=== PATIENT | male | born 1955 | race Caucasian/White ===

== ENCOUNTER 2017-11-01 17:13 | Inpatient (IN) | payer MEDICAID ==
[~2017-11-01] VITALS: Ht 177.8 cm; Wt 61.7 kg
--- NOTE | ~2017-11-01 | EC ---
PATIENT:GIANNI CURTIS DATE OF SERVICE: 11/01/17 SEX: M MEDICAL RECORD: [id number] DATE OF : 53 LOCATION:D.M2 D.213 AGE OF PATIENT: 62 ADMISSION DATE: 11/01/17 REFERRING PHYSICIAN: INTERPRETING PHYSICIAN: NICHOLAS MEDINA MD ECHOCARDIOGRAM REPORT ECHO CHARGES 4 ECHO COMPLETE CLINICAL DIAGNOSIS: CHF ECHOCARDIOGRAPHIC MEASUREMENTS (adult normal given) AC root (d.<3.7cm) 3.5 cm LV Septum d (<1.2 cm> 1.4 cm Valve Excursion 1.7 cm LV Septum (systole) 1.8 cm Left Atria (s.<4.0cm> 2.8 cm LVPW d(<1.2cm) 1.7 cm RV (d.<2.3cm) 3.4 cm LVPW (sytole) 1.9 cm LV diastole(<5.6CM) 4.5 cm MV E-F(>70mm/sec) cm LV systole 3.2 cm LVOT Diameter 1.9 cm MV exc.(>10mm) 1.8 cm Est.ejection fraction (50-75%) % Pericardial Effusion N DOPPLER: LVIT cm/sec A 112 cm/sec E 93.0 cm/sec LA cm/sec RVSP 23 mmHg LVOT 122 cm/sec AOP1/2T m/s Asc. Ao 166 cm/sec RVOT 95 cm/sec RA cm/sec PA 147 cm/sec AV Gradient Peak 11.07mmHg AV Mean 5.30 mmHg AV Area 1.9 cm MV Gradient Peak 6.36 mmHg MV Mean 3.49 mmHg MV Area cm COMMENTS: Etcher Enameling: Corby BARRERA Flavor Room Worker: 2 Dr[address] Power TAPE# PACS DATE OF SERVICE: 11/02/2017 PROCEDURE: Echocardiogram FINDINGS: 1. Left ventricular chamber size is within normal limits. Left ventricular systolic function is normal. Overall ejection fraction estimated at 55%. 2. Left atrium, right atrium, and right ventricle chamber sizes are within normal limits. 3. Valvular structures have normal structure and motion. ECHOCARDIOGRAM REPORT [id number] GIANNI CURTIS 4. Doppler interrogation reveals mild mitral regurgitation, mild tricuspid regurgitation, no other valvular insufficiency or stenosis and pulmonary systolic pressure is normal estimated at 23 mmHg. 5. No evidence of pericardial effusion or left ventricular thrombus. TRANSINT:[id number] Voice Confirmation ID: [id number] DOCUMENT ID: [id number] NICHOLAS MEDINA MD at 1148 CC: [id number] DICTATION DATE: 11/03/17 1047 [employer] PL[employer] SUPERINTENDENT: 11/03/17 1058 ADM IN [facility] [address] [place] [address]
--- NOTE | ~2017-11-01 | OP ---
PATIENT NAME: GIANNI CURTIS MEDICAL RECORD: [id number] :53 LOCATION:D. D.2131 ADMISSION DATE:11/01/17 SURGEON: KODY NEGRETE MD DATE OF OPERATION: 11/06/2017 SURGEON: Kody Negrete MD PREOPERATIVE DIAGNOSES: Pneumonia, pleural effusion, CHF, lymphoma. POSTOPERATIVE DIAGNOSES: Pneumonia, pleural effusion, CHF, lymphoma. PROCEDURE PERFORMED: Left inguinal excisional lymph node biopsy. ANESTHESIA: General. COMPLICATIONS: None. SPECIMENS: Left inguinal lymph node, 4 x 3 x 3 cm. Case was clean. OPERATIVE COURSE: After consent was obtained, the patient was taken to the operating room and placed in the supine position on the operating table. Next, general anesthesia was given via endotracheal intubation after a timeout was performed to confirm the correct patient and procedure. Left inguinal area was prepped and draped in typical sterile fashion. A 15 cc of local anesthetic were injected. After local anesthetic, a small transverse incision was made. Dissection continued through subcutaneous tissue with electrocautery. Once the node was identified, it was circumferentially dissected with a right angle dissector. Clips were placed. Multiple clips were used during the dissection. All tissue surrounding the lymph node was clipped prior to tissue dissection. The lymph node was dissected out after meticulous circumferential dissection with clip application. The specimen was removed and sent with lymph node protocol to pathology. The wound was copiously irrigated and suctioned. A small 10-Faroese drain was placed into the wound and the wound was closed in multiple layers, deep subcutaneous tissue with 3-0 Vicryl sutures, superficial wound closure with 3-0 Vicryl suture, and skin was closed with 4-0 Monocryl. The LUCILLE drain was secured to the skin using 2-0 nylon suture. The incision was reinforced with Mastisol and Steri-Strips. At the end of the case, all needle and instrument counts were correct. No complications occurred. The patient was extubated and transferred to the PACU in stable condition. TRANSINT:[id number] Voice Confirmation ID: [id number] DOCUMENT ID: [id number] KODY NEGRETE MD at 173 CC: [id number] DICTATION DATE: 11/06/17 1332 BONDING MOLDER: 11/06/17 1408 ADM IN [address] [place] [address]
[2017-11-01 17:27] VITALS: BP 128/66; BMI 21.5
[2017-11-01] MEDS ORDERED: WELLBUTRIN SR150 MG PO (17:37)
[2017-11-01] MEDS ORDERED: MOBIC7.5 MG PO (17:38)
[2017-11-01] MEDS ORDERED: KLONOPIN1 MG PO (17:38)
[2017-11-01] MEDS ORDERED: OXYBUTYNIN CHLOR5 MG PO (17:39)
[2017-11-01] MEDS ORDERED: PROTONIX20 MG PO (17:39)
[2017-11-01] MEDS ORDERED: SEROQUEL100 MG PO (17:40)
[2017-11-01 19:00] VITALS: BP 104/62
[2017-11-01 19:06] LABS: HEMATOCRIT 30.8 % (42.0-54.0); HEMOGLOBIN 10.1 g/dL (13.5-17.5); MCH 27.4 pg (26.0-34.0); MCHC 32.8 g/dL (31.0-37.0); MCV 83.7 fL (80.0-100.0); MEAN PLATELET VOLUME 9.5 fL (7.4-10.4); PLATELET COUNT 252 10x3/uL (130-400); RBC 3.68 10x6/uL (4.20-6.10); RDW 17.5 % (11.5-14.5); WBC 11.6 10x3/uL (4.8-10.8)
[2017-11-01 19:16] LABS: ALBUMIN 1.7 g/dL (3.4-5.0); ALKALINE PHOSPHATASE 75 U/L (46-116); ALT (SGPT) 18 U/L (10-68); BILIRUBIN - TOTAL 0.78 mg/dL (0.2-1.3); CALC OSMOLALITY 254 mosm/kg (275-300); CALCIUM 7.2 mg/dL (8.5-10.1); CARBON DIOXIDE 24.5 mmol/L (21.0-32.0); CHLORIDE - SERUM 96 mmol/L (98-107); CREATININE - SERUM 0.7 mg/dL (0.6-1.3); GLUCOSE 85 mg/dL (74-106); POTASSIUM - SERUM 3.9 mmol/L (3.5-5.1); PROTEIN - SERUM 6.7 g/dL (6.4-8.2); SODIUM 127 mmol/L (136-145); UREA NITROGEN 16 mg/dL (7-18); eGFR NON AFRICAN AMERICAN > 90 mL/min (90-120)
[2017-11-01 19:40] LABS: LYMPHOCYTES 4 % (15-50); MONOCYTES 2 % (2-11); NEUTROPHILS 94 % (40-80); PLATELET ESTIMATE NORMAL
[2017-11-02 04:52] VITALS: BP 105/51
[2017-11-02 08:19] VITALS: BP 119/55
[2017-11-02 11:20] LABS: BASOPHILS 1.3 % (0-2); EOSINOPHILS 0.2 % (0-7); HEMATOCRIT 28.5 % (42.0-54.0); HEMOGLOBIN 9.3 g/dL (13.5-17.5); IMMATURE GRANULOCYTES 0.9 % (0-5); LYMPHOCYTES 7.1 % (15-50); MCH 27.3 pg (26.0-34.0); MCHC 32.6 g/dL (31.0-37.0); MCV 83.6 fL (80.0-100.0); MEAN PLATELET VOLUME 9.3 fL (7.4-10.4); MONOCYTES 3.7 % (2-11); NEUTROPHILS 86.8 % (40-80); PLATELET COUNT 211 10x3/uL (130-400); RBC 3.41 10x6/uL (4.20-6.10); RDW 17.5 % (11.5-14.5); WBC 10.3 10x3/uL (4.8-10.8)
[2017-11-02 11:32] VITALS: BP 132/58
[2017-11-02 11:35] LABS: ALBUMIN 1.6 g/dL (3.4-5.0); ALKALINE PHOSPHATASE 71 U/L (46-116); ALT (SGPT) 22 U/L (10-68); CALC OSMOLALITY 254 mosm/kg (275-300); CALCIUM 7.4 mg/dL (8.5-10.1); CHLORIDE - SERUM 95 mmol/L (98-107); CREATININE - SERUM 0.7 mg/dL (0.6-1.3); GLUCOSE 114 mg/dL (74-106); POTASSIUM - SERUM 3.8 mmol/L (3.5-5.1); PROTEIN - SERUM 6.4 g/dL (6.4-8.2); SODIUM 126 mmol/L (136-145); UREA NITROGEN 16 mg/dL (7-18); eGFR NON AFRICAN AMERICAN > 90 mL/min (90-120)
[2017-11-02 11:43] LABS: MAGNESIUM - SERUM 2.1 mg/dL (1.8-2.4); PRO BNP 333 pg/mL (0-125)
[2017-11-02 11:44] LABS: INR 1.62 (0.85-1.17); PROTIME 18.7 SECONDS (11.6-15.0)
[2017-11-02 13:03] VITALS: BMI 21.5
[2017-11-02 15:44] VITALS: BP 138/65
[2017-11-02 16:01] LABS: PROTEIN - BODY FLUID 3.8 G/DL
[2017-11-02 18:20] LABS: NEUT - BF 91 %
[2017-11-02 18:43] LABS: % SATURATION 6 % (15-55); IRON 10 ug/dl (35-150); TOTAL IRON BIND CAPACITY 146 ug/dl (260-445); UNSAT IRON BIND CAPACITY 136 ug/dl (150-375)
[2017-11-02 20:53] VITALS: BP 114/68
[2017-11-03 02:35] VITALS: BP 123/75
[2017-11-03 05:41] LABS: BASOPHILS 0.7 % (0-2); EOSINOPHILS 0 % (0-7); HEMATOCRIT 27.5 % (42.0-54.0); HEMOGLOBIN 8.9 g/dL (13.5-17.5); IMMATURE GRANULOCYTES 0.6 % (0-5); LYMPHOCYTES 5.7 % (15-50); MCH 27.2 pg (26.0-34.0); MCHC 32.4 g/dL (31.0-37.0); MCV 84.1 fL (80.0-100.0); MEAN PLATELET VOLUME 9.6 fL (7.4-10.4); MONOCYTES 3.3 % (2-11); NEUTROPHILS 89.7 % (40-80); PLATELET COUNT 214 10x3/uL (130-400); RBC 3.27 10x6/uL (4.20-6.10); RDW 17.3 % (11.5-14.5); WBC 11.1 10x3/uL (4.8-10.8)
[2017-11-03 06:08] VITALS: BP 114/55
[2017-11-03 06:12] LABS: % SATURATION 7 % (15-55); IRON 10 ug/dl (35-150); TOTAL IRON BIND CAPACITY 141 ug/dl (260-445); UNSAT IRON BIND CAPACITY 131 ug/dl (150-375)
[2017-11-03 06:13] LABS: ALBUMIN 1.6 g/dL (3.4-5.0); ALKALINE PHOSPHATASE 67 U/L (46-116); BILIRUBIN - TOTAL 0.76 mg/dL (0.2-1.3); CALCIUM 7.4 mg/dL (8.5-10.1); CARBON DIOXIDE 21.6 mmol/L (21.0-32.0); CHLORIDE - SERUM 95 mmol/L (98-107); FERRITIN 359 ng/mL (3-244); GLUCOSE 115 mg/dL (74-106); MAGNESIUM - SERUM 1.9 mg/dL (1.8-2.4); PRE-ALBUMIN 10.5 mg/dL (18.0-35.7); PROTEIN - SERUM 6.7 g/dL (6.4-8.2); SODIUM 126 mmol/L (136-145)
[2017-11-03 06:14] LABS: ALT (SGPT) 33 U/L (10-68); CALC OSMOLALITY 258 mosm/kg (275-300); POTASSIUM - SERUM 4.5 mmol/L (3.5-5.1); UREA NITROGEN 27 mg/dL (7-18); eGFR NON AFRICAN AMERICAN 80 mL/min (90-120)
[2017-11-03 07:51] VITALS: BP 123/63
[2017-11-03 13:16] LABS: FUNGUS STAIN Final report (())
[2017-11-03 15:20] LABS: APPEARANCE CLEAR (CLEAR); BILIRUBIN NEGATIVE (NEGATIVE); COLOR YELLOW (YELLOW); CREATININE - URINE 97.9 mg/dL (30-125); GLUCOSE NEGATIVE (NEGATIVE); KETONE NEGATIVE (NEGATIVE); NITRITE NEGATIVE (NEGATIVE); PROTEIN TRACE mg/dL (NEGATIVE); PROTEIN - URINE 89.1 mg/dL (0.0-11.9); SPECIFIC GRAVITY 1.015 (1.005-1.020); UROBILINOGEN NORMAL (NORMAL)
[2017-11-03 15:22] LABS: BACTERIA MODERATE /hpf (NONE SEEN); WHITE CELLS - URINE 0-5 /hpf (0-5)
[2017-11-03 15:30] VITALS: BP 118/64
[2017-11-03 15:39] VITALS: Ht 177.8 cm; Wt 61.7 kg
[2017-11-03 19:00] VITALS: BP 119/66
[2017-11-03 20:08] LABS: AFB SPECIMEN PROCESSING Concentration (())
[2017-11-04 04:00] VITALS: BP 105/61
[2017-11-04 07:02] LABS: BASOPHILS 1.1 % (0-2); EOSINOPHILS 0.6 % (0-7); HEMATOCRIT 25.5 % (42.0-54.0); IMMATURE GRANULOCYTES 0.3 % (0-5); LYMPHOCYTES 8.2 % (15-50); MCH 26.6 pg (26.0-34.0); MCHC 31.4 g/dL (31.0-37.0); MCV 84.7 fL (80.0-100.0); MEAN PLATELET VOLUME 9.3 fL (7.4-10.4); MONOCYTES 3.7 % (2-11); NEUTROPHILS 86.1 % (40-80); PLATELET COUNT 206 10x3/uL (130-400); RBC 3.01 10x6/uL (4.20-6.10)
[2017-11-04 07:07] LABS: WBC 6.4 10x3/uL (4.8-10.8)
[2017-11-04 07:23] LABS: CALCIUM 7.5 mg/dL (8.5-10.1); CHLORIDE - SERUM 99 mmol/L (98-107); GLUCOSE 93 mg/dL (74-106); POTASSIUM - SERUM 4.3 mmol/L (3.5-5.1); SODIUM 129 mmol/L (136-145)
[2017-11-04 07:25] LABS: CALC OSMOLALITY 260 mosm/kg (275-300); CREATININE - SERUM 0.7 mg/dL (0.6-1.3); UREA NITROGEN 17 mg/dL (7-18); eGFR NON AFRICAN AMERICAN > 90 mL/min (90-120)
[2017-11-04 08:17] LABS: FOLATE (FOLIC ACID) - SERUM 4.9 ng/mL (>3.0)
[2017-11-04 09:50] VITALS: BP 119/57
[2017-11-04 12:15] VITALS: BP 137/62
[2017-11-04 15:58] VITALS: BP 130/64
[2017-11-04 20:40] VITALS: BP 153/60
[2017-11-05 00:15] VITALS: BP 105/51
[2017-11-05 05:09] VITALS: BP 118/57
[2017-11-05 07:27] LABS: BASOPHILS 0.7 % (0-2); EOSINOPHILS 0.5 % (0-7); HEMATOCRIT 22.7 % (42.0-54.0); IMMATURE GRANULOCYTES 0.5 % (0-5); LYMPHOCYTES 10.3 % (15-50); MCH 26.9 pg (26.0-34.0); MCHC 31.7 g/dL (31.0-37.0); MCV 84.7 fL (80.0-100.0); MEAN PLATELET VOLUME 8.9 fL (7.4-10.4); MONOCYTES 3.8 % (2-11); NEUTROPHILS 84.2 % (40-80); PLATELET COUNT 166 10x3/uL (130-400); RBC 2.68 10x6/uL (4.20-6.10); RDW 16.8 % (11.5-14.5)
[2017-11-05 07:30] LABS: HEMOGLOBIN 7.2 g/dL (13.5-17.5); WBC 4.2 10x3/uL (4.8-10.8)
[2017-11-05 07:40] LABS: CALC OSMOLALITY 256 mosm/kg (275-300); CALCIUM 7.3 mg/dL (8.5-10.1); CARBON DIOXIDE 24.6 mmol/L (21.0-32.0); CHLORIDE - SERUM 99 mmol/L (98-107); CREATININE - SERUM 0.7 mg/dL (0.6-1.3); GLUCOSE 89 mg/dL (74-106); POTASSIUM - SERUM 4.1 mmol/L (3.5-5.1); SODIUM 129 mmol/L (136-145); eGFR NON AFRICAN AMERICAN > 90 mL/min (90-120)
[2017-11-05 07:41] VITALS: BP 117/63
[2017-11-05 07:45] LABS: UREA NITROGEN 11 mg/dL (7-18)
[2017-11-05 11:37] VITALS: BP 115/61
[2017-11-05 20:58] VITALS: BP 134/65
[2017-11-06] VITALS (9 sets, daily range): BP systolic 132–158; BP diastolic 65–86
[2017-11-06 06:47] LABS: BASOPHILS 0.6 % (0-2); EOSINOPHILS 0.4 % (0-7); HEMATOCRIT 27.9 % (42.0-54.0); HEMOGLOBIN 9.1 g/dL (13.5-17.5); IMMATURE GRANULOCYTES 0.4 % (0-5); LYMPHOCYTES 8.6 % (15-50); MCH 27.2 pg (26.0-34.0); MCHC 32.6 g/dL (31.0-37.0); MCV 83.5 fL (80.0-100.0); MEAN PLATELET VOLUME 9.4 fL (7.4-10.4); MONOCYTES 5.7 % (2-11); NEUTROPHILS 84.3 % (40-80); PLATELET COUNT 160 10x3/uL (130-400); RBC 3.34 10x6/uL (4.20-6.10); RDW 15.9 % (11.5-14.5); WBC 4.9 10x3/uL (4.8-10.8)
[2017-11-06 06:51] LABS: CALC OSMOLALITY 256 mosm/kg (275-300); CALCIUM 7.1 mg/dL (8.5-10.1); CARBON DIOXIDE 25.7 mmol/L (21.0-32.0); CHLORIDE - SERUM 98 mmol/L (98-107); CREATININE - SERUM 0.7 mg/dL (0.6-1.3); GLUCOSE 111 mg/dL (74-106); SODIUM 128 mmol/L (136-145); UREA NITROGEN 9 mg/dL (7-18); eGFR NON AFRICAN AMERICAN > 90 mL/min (90-120)
[2017-11-06 06:52] LABS: POTASSIUM - SERUM 3.3 mmol/L (3.5-5.1)
[2017-11-07] VITALS: BP 107/57
[2017-11-07 04:00] VITALS: BP 134/70
[2017-11-07 07:26] LABS: HEMATOCRIT 26.7 % (42.0-54.0); MCH 28.1 pg (26.0-34.0); MCHC 33.7 g/dL (31.0-37.0); MCV 83.4 fL (80.0-100.0); MEAN PLATELET VOLUME 8.6 fL (7.4-10.4); NEUTROPHILS 84.8 % (40-80); PLATELET COUNT 172 10x3/uL (130-400); RDW 16.1 % (11.5-14.5); WBC 5.3 10x3/uL (4.8-10.8)
[2017-11-07 07:32] VITALS: BP 138/70
[2017-11-07 07:37] LABS: CALC OSMOLALITY 259 mosm/kg (275-300); CALCIUM 7.2 mg/dL (8.5-10.1); CARBON DIOXIDE 24.1 mmol/L (21.0-32.0); CHLORIDE - SERUM 98 mmol/L (98-107); CREATININE - SERUM 0.7 mg/dL (0.6-1.3); GLUCOSE 92 mg/dL (74-106); POTASSIUM - SERUM 3.4 mmol/L (3.5-5.1); SODIUM 130 mmol/L (136-145); UREA NITROGEN 11 mg/dL (7-18); eGFR NON AFRICAN AMERICAN > 90 mL/min (90-120)
[2017-11-07 09:15] LABS: PSA - FREE 0.06 ng/mL; PSA - TOTAL 0.3 ng/mL (0.0-4.0)
[2017-11-07 09:25] VITALS: BP 95/64
[2017-11-07 11:00] VITALS: BP 142/84
[2017-11-07 15:21] LABS: HEPATITIS C ANTIBODY 0.2 (0.0-0.9)
[2017-11-07 20:00] VITALS: BP 160/72
[2017-11-08 04:00] VITALS: BP 150/77
[2017-11-08 05:14] LABS: BETA-2 MICROGLOBULIN 3.5 mg/L (0.6-2.4)
[2017-11-08 06:35] LABS: BASOPHILS 2.7 % (0-2); EOSINOPHILS 0.9 % (0-7); HEMATOCRIT 26.2 % (42.0-54.0); HEMOGLOBIN 8.6 g/dL (13.5-17.5); IMMATURE GRANULOCYTES 0.5 % (0-5); LYMPHOCYTES 10.2 % (15-50); MCH 27.4 pg (26.0-34.0); MCHC 32.8 g/dL (31.0-37.0); MCV 83.4 fL (80.0-100.0); MEAN PLATELET VOLUME 9.2 fL (7.4-10.4); NEUTROPHILS 80.7 % (40-80); PLATELET COUNT 162 10x3/uL (130-400); RBC 3.14 10x6/uL (4.20-6.10); WBC 4.4 10x3/uL (4.8-10.8)
[2017-11-08 07:02] LABS: CALC OSMOLALITY 261 mosm/kg (275-300); CALCIUM 7.3 mg/dL (8.5-10.1); CARBON DIOXIDE 26.9 mmol/L (21.0-32.0); CHLORIDE - SERUM 97 mmol/L (98-107); CREATININE - SERUM 0.6 mg/dL (0.6-1.3); GLUCOSE 96 mg/dL (74-106); POTASSIUM - SERUM 3.2 mmol/L (3.5-5.1); SODIUM 131 mmol/L (136-145); UREA NITROGEN 10 mg/dL (7-18); eGFR NON AFRICAN AMERICAN > 90 mL/min (90-120)
[2017-11-08 08:46] VITALS: BP 137/58
[2017-11-08 10:20] LABS: IMMUNOFIXATION Note: (()); IMMUNOGLOBULIN A 200 mg/dL (61-437); IMMUNOGLOBULIN G 1564 mg/dL (700-1600); IMMUNOGLOBULIN M 44 mg/dL (20-172); SPE - A/G RATIO 0.4 (0.7-1.7); SPE - ALBUMIN 1.6 g/dL (2.9-4.4); SPE - ALPHA-1 GLOBULIN 0.4 g/dL (0.0-0.4); SPE - ALPHA-2 GLOBULIN 0.9 g/dL (0.4-1.0); SPE - BETA GLOBULIN 0.7 g/dL (0.7-1.3); SPE - GAMMA GLOBULIN 1.6 g/dL (0.4-1.8); SPE - M-SPIKE Not Observed g/dL (Not Observed); SPE - TOTAL PROTEIN 5.2 g/dL (6.0-8.5)
[2017-11-08 12:23] VITALS: BP 135/56
[2017-11-08 13:15] LABS: FUNGUS STAIN Final report (())
[2017-11-08 16:00] VITALS: BP 142/62
[2017-11-08 17:11] LABS: AFB SPECIMEN PROCESSING Tissue Grinding (())
[2017-11-08 19:00] VITALS: BP 118/61
[2017-11-09 04:00] VITALS: BP 139/60
[2017-11-09 07:44] VITALS: BP 145/70
[2017-11-09 14:57] VITALS: BP 142/76
[2017-11-09 21:46] VITALS: BP 157/68
[2017-11-10 00:33] VITALS: BP 119/57
[2017-11-10 04:51] VITALS: BP 142/69
[2017-11-10 04:58] LABS: BASOPHILS 0.6 % (0-2); EOSINOPHILS 1.4 % (0-7); HEMATOCRIT 25.9 % (42.0-54.0); HEMOGLOBIN 8.6 g/dL (13.5-17.5); IMMATURE GRANULOCYTES 0.6 % (0-5); LYMPHOCYTES 15.5 % (15-50); MCH 27.3 pg (26.0-34.0); MCHC 33.2 g/dL (31.0-37.0); MCV 82.2 fL (80.0-100.0); MEAN PLATELET VOLUME 8.9 fL (7.4-10.4); MONOCYTES 5.4 % (2-11); NEUTROPHILS 76.5 % (40-80); PLATELET COUNT 147 10x3/uL (130-400); RBC 3.15 10x6/uL (4.20-6.10); RDW 16.2 % (11.5-14.5); WBC 3.5 10x3/uL (4.8-10.8)
[2017-11-10 05:09] LABS: CALC OSMOLALITY 256 mosm/kg (275-300); CALCIUM 7.3 mg/dL (8.5-10.1); CARBON DIOXIDE 26.4 mmol/L (21.0-32.0); CHLORIDE - SERUM 96 mmol/L (98-107); CREATININE - SERUM 0.7 mg/dL (0.6-1.3); GLUCOSE 94 mg/dL (74-106); POTASSIUM - SERUM 3.2 mmol/L (3.5-5.1); SODIUM 129 mmol/L (136-145); UREA NITROGEN 8 mg/dL (7-18); eGFR NON AFRICAN AMERICAN > 90 mL/min (90-120)
[2017-11-10 07:47] VITALS: BP 124/66
[2017-11-10 10:40] VITALS: BP 133/77
[2017-11-10 15:07] VITALS: BP 120/62
[2017-11-10 20:54] VITALS: BP 166/86
[2017-11-11 00:53] VITALS: BP 146/83
[2017-11-11 04:43] LABS: BASOPHILS 0.7 % (0-2); EOSINOPHILS 1.6 % (0-7); HEMATOCRIT 28.6 % (42.0-54.0); HEMOGLOBIN 9.5 g/dL (13.5-17.5); IMMATURE GRANULOCYTES 0.7 % (0-5); LYMPHOCYTES 13.1 % (15-50); MCH 27.1 pg (26.0-34.0); MCHC 33.2 g/dL (31.0-37.0); MCV 81.7 fL (80.0-100.0); MONOCYTES 6.3 % (2-11); NEUTROPHILS 77.6 % (40-80); PLATELET COUNT 170 10x3/uL (130-400)
[2017-11-11 04:47] VITALS: BP 142/76
[2017-11-11 04:47] LABS: WBC 4.4 10x3/uL (4.8-10.8)
[2017-11-11 04:53] LABS: CALC OSMOLALITY 251 mosm/kg (275-300); CALCIUM 8.2 mg/dL (8.5-10.1); CARBON DIOXIDE 27.8 mmol/L (21.0-32.0); CHLORIDE - SERUM 92 mmol/L (98-107); CREATININE - SERUM 0.7 mg/dL (0.6-1.3); GLUCOSE 110 mg/dL (74-106); POTASSIUM - SERUM 3.6 mmol/L (3.5-5.1); SODIUM 125 mmol/L (136-145); UREA NITROGEN 10 mg/dL (7-18); eGFR NON AFRICAN AMERICAN > 90 mL/min (90-120)
[2017-11-11 08:10] VITALS: BP 152/72
[2017-11-11 11:31] VITALS: BP 167/86
[2017-11-11 15:34] VITALS: BP 166/84
[2017-11-11 19:00] VITALS: BP 158/78
[2017-11-12] VITALS: BP 104/61
[2017-11-12 04:00] VITALS: BP 128/69
[2017-11-12 05:30] LABS: BASOPHILS 0.8 % (0-2); EOSINOPHILS 1.2 % (0-7); HEMATOCRIT 28.8 % (42.0-54.0); HEMOGLOBIN 9.6 g/dL (13.5-17.5); IMMATURE GRANULOCYTES 0.6 % (0-5); LYMPHOCYTES 11.1 % (15-50); MCH 27.1 pg (26.0-34.0); MCHC 33.3 g/dL (31.0-37.0); MCV 81.4 fL (80.0-100.0); MEAN PLATELET VOLUME 8.9 fL (7.4-10.4); MONOCYTES 6.3 % (2-11); PLATELET COUNT 175 10x3/uL (130-400); RBC 3.54 10x6/uL (4.20-6.10); RDW 16.2 % (11.5-14.5); WBC 5.1 10x3/uL (4.8-10.8)
[2017-11-12 05:35] LABS: CALC OSMOLALITY 246 mosm/kg (275-300); CALCIUM 7.5 mg/dL (8.5-10.1); CARBON DIOXIDE 27.3 mmol/L (21.0-32.0); CHLORIDE - SERUM 89 mmol/L (98-107); CREATININE - SERUM 0.7 mg/dL (0.6-1.3); GLUCOSE 109 mg/dL (74-106); POTASSIUM - SERUM 3.8 mmol/L (3.5-5.1); SODIUM 122 mmol/L (136-145); eGFR NON AFRICAN AMERICAN > 90 mL/min (90-120)
[2017-11-12 05:41] LABS: UREA NITROGEN 13 mg/dL (7-18)
[2017-11-12 08:24] VITALS: BP 141/72
[2017-11-12 11:36] VITALS: BP 143/76
[2017-11-12 15:41] VITALS: BP 142/70
[2017-11-12 20:00] VITALS: BP 159/74
[2017-11-13] VITALS (21 sets, daily range): BP systolic 143–199; BP diastolic 68–115
[2017-11-13 05:57] LABS: BASOPHILS 0.4 % (0-2); EOSINOPHILS 1.2 % (0-7); HEMATOCRIT 27.2 % (42.0-54.0); HEMOGLOBIN 9.1 g/dL (13.5-17.5); IMMATURE GRANULOCYTES 0.4 % (0-5); MCHC 33.5 g/dL (31.0-37.0); MCV 80.7 fL (80.0-100.0); MEAN PLATELET VOLUME 9.5 fL (7.4-10.4); MONOCYTES 7.1 % (2-11); NEUTROPHILS 80.9 % (40-80); PLATELET COUNT 176 10x3/uL (130-400); RBC 3.37 10x6/uL (4.20-6.10); RDW 16.1 % (11.5-14.5); WBC 4.8 10x3/uL (4.8-10.8)
[2017-11-13 06:04] LABS: APTT 43.1 SECONDS (22.8-39.4); INR 1.19 (0.85-1.17); PROTIME 14.7 SECONDS (11.6-15.0)
[2017-11-13 06:29] LABS: CALC OSMOLALITY 243 mosm/kg (275-300); CALCIUM 7.8 mg/dL (8.5-10.1); CARBON DIOXIDE 26.5 mmol/L (21.0-32.0); CHLORIDE - SERUM 86 mmol/L (98-107); CREATININE - SERUM 0.6 mg/dL (0.6-1.3); GLUCOSE 87 mg/dL (74-106); POTASSIUM - SERUM 4.1 mmol/L (3.5-5.1); SODIUM 121 mmol/L (136-145); UREA NITROGEN 15 mg/dL (7-18); eGFR NON AFRICAN AMERICAN > 90 mL/min (90-120)
[2017-11-14 04:00] VITALS: BP 155/82
[2017-11-14 05:45] LABS: BASOPHILS 0.9 % (0-2); EOSINOPHILS 0.9 % (0-7); HEMATOCRIT 25.7 % (42.0-54.0); HEMOGLOBIN 8.6 g/dL (13.5-17.5); IMMATURE GRANULOCYTES 0.7 % (0-5); LYMPHOCYTES 11.7 % (15-50); MCH 26.7 pg (26.0-34.0); MCHC 33.5 g/dL (31.0-37.0); MCV 79.8 fL (80.0-100.0); MEAN PLATELET VOLUME 8.8 fL (7.4-10.4); NEUTROPHILS 77.8 % (40-80); PLATELET COUNT 187 10x3/uL (130-400); RBC 3.22 10x6/uL (4.20-6.10); WBC 4.4 10x3/uL (4.8-10.8)
[2017-11-14 06:00] LABS: CARBON DIOXIDE 26.3 mmol/L (21.0-32.0); CHLORIDE - SERUM 86 mmol/L (98-107); CREATININE - SERUM 0.7 mg/dL (0.6-1.3); GLUCOSE 84 mg/dL (74-106); POTASSIUM - SERUM 3.7 mmol/L (3.5-5.1); UREA NITROGEN 12 mg/dL (7-18); eGFR NON AFRICAN AMERICAN > 90 mL/min (90-120)
[2017-11-14 06:10] LABS: CALC OSMOLALITY 242 mosm/kg (275-300); SODIUM 121 mmol/L (136-145)
[2017-11-14 08:30] VITALS: BP 141/78
[2017-11-14 11:53] VITALS: BP 163/80
[2017-11-14 16:02] VITALS: BP 177/93
[2017-11-14 21:30] VITALS: BP 161/80
[2017-11-15 01:10] VITALS: BP 106/57
[2017-11-15 04:36] VITALS: BP 125/72
[2017-11-15 06:09] LABS: BASOPHILS 1.8 % (0-2); EOSINOPHILS 1.1 % (0-7); HEMATOCRIT 24.8 % (42.0-54.0); HEMOGLOBIN 8.3 g/dL (13.5-17.5); IMMATURE GRANULOCYTES 0.4 % (0-5); LYMPHOCYTES 11.7 % (15-50); MCH 26.7 pg (26.0-34.0); MCHC 33.5 g/dL (31.0-37.0); MCV 79.7 fL (80.0-100.0); MEAN PLATELET VOLUME 8.7 fL (7.4-10.4); MONOCYTES 7.7 % (2-11); NEUTROPHILS 77.3 % (40-80); PLATELET COUNT 211 10x3/uL (130-400); RBC 3.11 10x6/uL (4.20-6.10); RDW 16.2 % (11.5-14.5); WBC 4.5 10x3/uL (4.8-10.8)
[2017-11-15 06:21] LABS: CALCIUM 7.7 mg/dL (8.5-10.1); CARBON DIOXIDE 27.8 mmol/L (21.0-32.0); CHLORIDE - SERUM 87 mmol/L (98-107); CREATININE - SERUM 0.7 mg/dL (0.6-1.3); GLUCOSE 95 mg/dL (74-106); POTASSIUM - SERUM 3.6 mmol/L (3.5-5.1); UREA NITROGEN 11 mg/dL (7-18); eGFR NON AFRICAN AMERICAN > 90 mL/min (90-120)
[2017-11-15 06:31] LABS: CALC OSMOLALITY 242 mosm/kg (275-300); SODIUM 121 mmol/L (136-145)
[2017-11-15 08:00] VITALS: BP 153/76
[2017-11-15 12:09] VITALS: BP 144/87
[2017-11-15 16:50] VITALS: BP 177/88
[2017-11-15 22:53] VITALS: BP 154/74
[2017-11-16] VITALS (20 sets, daily range): BP systolic 145–173; BP diastolic 70–86
[2017-11-16 06:44] LABS: BASOPHILS 1.8 % (0-2); EOSINOPHILS 2.1 % (0-7); HEMATOCRIT 23.4 % (42.0-54.0); IMMATURE GRANULOCYTES 0.5 % (0-5); LYMPHOCYTES 12.3 % (15-50); MCHC 34.2 g/dL (31.0-37.0); MCV 79.1 fL (80.0-100.0); MEAN PLATELET VOLUME 8.4 fL (7.4-10.4); MONOCYTES 8.7 % (2-11); NEUTROPHILS 74.6 % (40-80); PLATELET COUNT 217 10x3/uL (130-400); RBC 2.96 10x6/uL (4.20-6.10); RDW 16.2 % (11.5-14.5); WBC 3.9 10x3/uL (4.8-10.8)
[2017-11-16 07:06] LABS: CALCIUM 7.7 mg/dL (8.5-10.1); CARBON DIOXIDE 27.4 mmol/L (21.0-32.0); CHLORIDE - SERUM 88 mmol/L (98-107); CREATININE - SERUM 0.7 mg/dL (0.6-1.3); GLUCOSE 88 mg/dL (74-106); POTASSIUM - SERUM 3.6 mmol/L (3.5-5.1); eGFR NON AFRICAN AMERICAN > 90 mL/min (90-120)
[2017-11-16 07:11] LABS: CALC OSMOLALITY 240 mosm/kg (275-300); SODIUM 121 mmol/L (136-145); UREA NITROGEN 8 mg/dL (7-18)
[2017-11-17 01:16] VITALS: BP 154/74
[2017-11-17 05:14] VITALS: BP 145/75
[2017-11-17 07:12] LABS: BASOPHILS 1.5 % (0-2); EOSINOPHILS 0.4 % (0-7); HEMATOCRIT 24.5 % (42.0-54.0); HEMOGLOBIN 8.1 g/dL (13.5-17.5); IMMATURE GRANULOCYTES 0.9 % (0-5); LYMPHOCYTES 18.2 % (15-50); MCHC 33.1 g/dL (31.0-37.0); MEAN PLATELET VOLUME 8.1 fL (7.4-10.4); PLATELET COUNT 254 10x3/uL (130-400); RDW 16.5 % (11.5-14.5); WBC 4.6 10x3/uL (4.8-10.8)
[2017-11-17 07:15] LABS: CALC OSMOLALITY 250 mosm/kg (275-300); CALCIUM 7.8 mg/dL (8.5-10.1); CARBON DIOXIDE 25.8 mmol/L (21.0-32.0); CHLORIDE - SERUM 95 mmol/L (98-107); CREATININE - SERUM 0.8 mg/dL (0.6-1.3); GLUCOSE 94 mg/dL (74-106); POTASSIUM - SERUM 3.2 mmol/L (3.5-5.1); SODIUM 126 mmol/L (136-145); UREA NITROGEN 7 mg/dL (7-18); eGFR NON AFRICAN AMERICAN > 90 mL/min (90-120)
[2017-11-17 07:23] LABS: MCV 81.7 fL (80.0-100.0)
[2017-11-17 08:12] VITALS: BP 169/81
[2017-11-17 12:30] VITALS: BP 170/76
[2017-11-17 15:58] VITALS: BP 155/74
[2017-11-17 21:07] VITALS: BP 155/86
[2017-11-18 01:58] VITALS: BP 146/84
[2017-11-18 05:24] VITALS: BP 151/71
[2017-11-18 06:23] LABS: EOSINOPHILS 0.4 % (0-7); HEMATOCRIT 26.2 % (42.0-54.0); HEMOGLOBIN 8.5 g/dL (13.5-17.5); IMMATURE GRANULOCYTES 0.4 % (0-5); LYMPHOCYTES 18.7 % (15-50); MCH 26.9 pg (26.0-34.0); MCHC 32.4 g/dL (31.0-37.0); MCV 82.9 fL (80.0-100.0); MEAN PLATELET VOLUME 8.1 fL (7.4-10.4); MONOCYTES 10.5 % (2-11); PLATELET COUNT 264 10x3/uL (130-400); RBC 3.16 10x6/uL (4.20-6.10); RDW 16.8 % (11.5-14.5); WBC 4.5 10x3/uL (4.8-10.8)
[2017-11-18 06:39] LABS: CALC OSMOLALITY 256 mosm/kg (275-300); CARBON DIOXIDE 26.4 mmol/L (21.0-32.0); CHLORIDE - SERUM 95 mmol/L (98-107); CREATININE - SERUM 0.8 mg/dL (0.6-1.3); GLUCOSE 107 mg/dL (74-106); POTASSIUM - SERUM 3.2 mmol/L (3.5-5.1); SODIUM 128 mmol/L (136-145); UREA NITROGEN 12 mg/dL (7-18); eGFR NON AFRICAN AMERICAN > 90 mL/min (90-120)
[2017-11-18 07:06] VITALS: BP 151/85
[2017-11-18 11:04] VITALS: BP 141/74
[2017-11-18 15:11] VITALS: BP 145/79
[2017-11-18 21:12] VITALS: BP 139/75
[2017-11-19 00:59] VITALS: BP 124/89
[2017-11-19 05:04] LABS: BASOPHILS 3.1 % (0-2); EOSINOPHILS 0.4 % (0-7); HEMATOCRIT 27.4 % (42.0-54.0); HEMOGLOBIN 8.9 g/dL (13.5-17.5); IMMATURE GRANULOCYTES 0.2 % (0-5); LYMPHOCYTES 23.3 % (15-50); MCH 27.1 pg (26.0-34.0); MCHC 32.5 g/dL (31.0-37.0); MCV 83.3 fL (80.0-100.0); MEAN PLATELET VOLUME 8.1 fL (7.4-10.4); MONOCYTES 11.2 % (2-11); NEUTROPHILS 61.8 % (40-80); PLATELET COUNT 311 10x3/uL (130-400); RBC 3.29 10x6/uL (4.20-6.10); WBC 4.5 10x3/uL (4.8-10.8)
[2017-11-19 05:05] VITALS: BP 141/85
[2017-11-19 05:21] LABS: CALC OSMOLALITY 254 mosm/kg (275-300); CALCIUM 7.7 mg/dL (8.5-10.1); CARBON DIOXIDE 26.3 mmol/L (21.0-32.0); CHLORIDE - SERUM 94 mmol/L (98-107); CREATININE - SERUM 0.7 mg/dL (0.6-1.3); GLUCOSE 82 mg/dL (74-106); SODIUM 127 mmol/L (136-145); UREA NITROGEN 14 mg/dL (7-18); eGFR NON AFRICAN AMERICAN > 90 mL/min (90-120)
[2017-11-19 05:26] LABS: POTASSIUM - SERUM 3.9 mmol/L (3.5-5.1)
[2017-11-19 08:24] VITALS: BP 140/77
[2017-11-19 12:10] VITALS: BP 148/72
[2017-11-19 16:39] VITALS: BP 148/74
[2017-11-19 22:35] VITALS: BP 157/80
[2017-11-20 01:02] VITALS: BP 107/66
[2017-11-20 06:09] VITALS: BP 147/69
[2017-11-20 07:28] VITALS: BP 146/82
[2017-11-20 11:02] LABS: BASOPHILS 2.3 % (0-2); EOSINOPHILS 0.4 % (0-7); HEMATOCRIT 28.2 % (42.0-54.0); HEMOGLOBIN 9.4 g/dL (13.5-17.5); IMMATURE GRANULOCYTES 0.6 % (0-5); LYMPHOCYTES 11.4 % (15-50); MCH 27.4 pg (26.0-34.0); MCHC 33.3 g/dL (31.0-37.0); MCV 82.2 fL (80.0-100.0); MEAN PLATELET VOLUME 7.9 fL (7.4-10.4); MONOCYTES 5.8 % (2-11); NEUTROPHILS 79.5 % (40-80); PLATELET COUNT 265 10x3/uL (130-400); RBC 3.43 10x6/uL (4.20-6.10); RDW 16.7 % (11.5-14.5); WBC 5.2 10x3/uL (4.8-10.8)
[2017-11-20 11:38] LABS: ALBUMIN 2.2 g/dL (3.4-5.0); ALKALINE PHOSPHATASE 90 U/L (46-116); ALT (SGPT) 24 U/L (10-68); BILIRUBIN - TOTAL 0.61 mg/dL (0.2-1.3); CALC OSMOLALITY 255 mosm/kg (275-300); CALCIUM 8.3 mg/dL (8.5-10.1); CARBON DIOXIDE 29.5 mmol/L (21.0-32.0); CHLORIDE - SERUM 93 mmol/L (98-107); CREATININE - SERUM 0.8 mg/dL (0.6-1.3); GLUCOSE 126 mg/dL (74-106); POTASSIUM - SERUM 3.5 mmol/L (3.5-5.1); PROTEIN - SERUM 6.9 g/dL (6.4-8.2); SODIUM 126 mmol/L (136-145); UREA NITROGEN 14 mg/dL (7-18); eGFR NON AFRICAN AMERICAN > 90 mL/min (90-120)
[2017-11-20 11:45] VITALS: BP 131/71
[2017-11-20 15:45] VITALS: BP 141/71
[2017-11-20 23:40] VITALS: BP 152/85
[2017-11-21 05:21] LABS: BASOPHILS 3.8 % (0-2); EOSINOPHILS 0.5 % (0-7); HEMATOCRIT 25.8 % (42.0-54.0); HEMOGLOBIN 8.6 g/dL (13.5-17.5); IMMATURE GRANULOCYTES 0.5 % (0-5); MCH 27.2 pg (26.0-34.0); MCHC 33.3 g/dL (31.0-37.0); MCV 81.6 fL (80.0-100.0); MEAN PLATELET VOLUME 7.9 fL (7.4-10.4); MONOCYTES 8.8 % (2-11); NEUTROPHILS 62.4 % (40-80); PLATELET COUNT 253 10x3/uL (130-400); RBC 3.16 10x6/uL (4.20-6.10); RDW 16.4 % (11.5-14.5); WBC 4.2 10x3/uL (4.8-10.8)
[2017-11-21 05:46] LABS: ALBUMIN 2.2 g/dL (3.4-5.0); ALKALINE PHOSPHATASE 91 U/L (46-116); ALT (SGPT) 39 U/L (10-68); BILIRUBIN - TOTAL 0.45 mg/dL (0.2-1.3); CALC OSMOLALITY 253 mosm/kg (275-300); CALCIUM 8.1 mg/dL (8.5-10.1); CARBON DIOXIDE 28.2 mmol/L (21.0-32.0); CHLORIDE - SERUM 92 mmol/L (98-107); CREATININE - SERUM 0.9 mg/dL (0.6-1.3); GLUCOSE 98 mg/dL (74-106); POTASSIUM - SERUM 3.4 mmol/L (3.5-5.1); PROTEIN - SERUM 6.7 g/dL (6.4-8.2); SODIUM 126 mmol/L (136-145); UREA NITROGEN 16 mg/dL (7-18); eGFR NON AFRICAN AMERICAN > 90 mL/min (90-120)
[2017-11-21 06:13] VITALS: BP 131/72
[2017-11-21 08:51] VITALS: BP 136/74
[2017-11-21 13:24] VITALS: BP 125/63
[2017-11-21 15:45] VITALS: BP 154/68
[2017-11-21 23:07] VITALS: BP 88/50
[2017-11-22 05:23] VITALS: BP 150/77
[2017-11-22 05:42] LABS: BASOPHILS 2.9 % (0-2); EOSINOPHILS 1.1 % (0-7); HEMATOCRIT 26.6 % (42.0-54.0); HEMOGLOBIN 8.8 g/dL (13.5-17.5); IMMATURE GRANULOCYTES 0.7 % (0-5); LYMPHOCYTES 14.3 % (15-50); MCH 27.5 pg (26.0-34.0); MCHC 33.1 g/dL (31.0-37.0); MCV 83.1 fL (80.0-100.0); MEAN PLATELET VOLUME 7.8 fL (7.4-10.4); MONOCYTES 7.2 % (2-11); NEUTROPHILS 73.8 % (40-80); PLATELET COUNT 225 10x3/uL (130-400); RDW 16.8 % (11.5-14.5); WBC 4.4 10x3/uL (4.8-10.8)
[2017-11-22 06:01] LABS: ALBUMIN 2.2 g/dL (3.4-5.0); ALKALINE PHOSPHATASE 94 U/L (46-116); BILIRUBIN - TOTAL 0.58 mg/dL (0.2-1.3); CALC OSMOLALITY 255 mosm/kg (275-300); CALCIUM 8.3 mg/dL (8.5-10.1); CARBON DIOXIDE 27.5 mmol/L (21.0-32.0); CHLORIDE - SERUM 93 mmol/L (98-107); CREATININE - SERUM 0.8 mg/dL (0.6-1.3); GLUCOSE 96 mg/dL (74-106); POTASSIUM - SERUM 4.1 mmol/L (3.5-5.1); PROTEIN - SERUM 6.5 g/dL (6.4-8.2); SODIUM 127 mmol/L (136-145); UREA NITROGEN 14 mg/dL (7-18); eGFR NON AFRICAN AMERICAN > 90 mL/min (90-120)
[2017-11-22 06:05] LABS: ALT (SGPT) 50 U/L (10-68)
[2017-11-22 08:45] VITALS: BP 173/79
[2017-11-22 12:45] VITALS: BP 157/79
[2017-11-22 16:43] VITALS: BP 117/59
[2017-11-22 22:09] VITALS: BP 96/54
[2017-11-23] VITALS (12 sets, daily range): BP systolic 102–139; BP diastolic 54–88
[2017-11-23 04:11] LABS: BASOPHILS 4.4 % (0-2); EOSINOPHILS 1.5 % (0-7); HEMATOCRIT 21.8 % (42.0-54.0); IMMATURE GRANULOCYTES 1.5 % (0-5); LYMPHOCYTES 20.7 % (15-50); MCHC 33.5 g/dL (31.0-37.0); MCV 83.5 fL (80.0-100.0); NEUTROPHILS 64.9 % (40-80); RBC 2.61 10x6/uL (4.20-6.10); RDW 17.6 % (11.5-14.5)
[2017-11-23 04:21] LABS: PLATELET COUNT 164 10x3/uL (130-400); WBC 2.7 10x3/uL (4.8-10.8)
[2017-11-23 04:22] LABS: HEMOGLOBIN 7.3 g/dL (13.5-17.5)
[2017-11-23 04:23] LABS: ALKALINE PHOSPHATASE 85 U/L (46-116); BILIRUBIN - TOTAL 0.61 mg/dL (0.2-1.3); CALC OSMOLALITY 259 mosm/kg (275-300); CALCIUM 7.8 mg/dL (8.5-10.1); CARBON DIOXIDE 26.6 mmol/L (21.0-32.0); CHLORIDE - SERUM 94 mmol/L (98-107); CREATININE - SERUM 0.9 mg/dL (0.6-1.3); GLUCOSE 127 mg/dL (74-106); POTASSIUM - SERUM 3.8 mmol/L (3.5-5.1); PROTEIN - SERUM 5.8 g/dL (6.4-8.2); SODIUM 128 mmol/L (136-145); UREA NITROGEN 15 mg/dL (7-18); eGFR NON AFRICAN AMERICAN > 90 mL/min (90-120)
[2017-11-23 04:33] LABS: ALT (SGPT) 37 U/L (10-68)
[2017-11-23 06:05] LABS: BASOPHILS 3.3 % (0-2); EOSINOPHILS 1.4 % (0-7); HEMATOCRIT 22.1 % (42.0-54.0); IMMATURE GRANULOCYTES 1.1 % (0-5); LYMPHOCYTES 18.5 % (15-50); MCH 27.8 pg (26.0-34.0); MCHC 33.5 g/dL (31.0-37.0); MCV 83.1 fL (80.0-100.0); MEAN PLATELET VOLUME 7.9 fL (7.4-10.4); NEUTROPHILS 67.7 % (40-80); PLATELET COUNT 157 10x3/uL (130-400); RBC 2.66 10x6/uL (4.20-6.10); RDW 17.7 % (11.5-14.5); WBC 2.8 10x3/uL (4.8-10.8)
[2017-11-23 06:20] LABS: HEMOGLOBIN 7.4 g/dL (13.5-17.5)
[2017-11-24 04:00] VITALS: BP 104/53
[2017-11-24 05:37] LABS: BASOPHILS 1.3 % (0-2); EOSINOPHILS 1.7 % (0-7); LYMPHOCYTES 9.7 % (15-50); MCH 28.2 pg (26.0-34.0); MCHC 33.5 g/dL (31.0-37.0); MCV 84.2 fL (80.0-100.0); MEAN PLATELET VOLUME 8.3 fL (7.4-10.4); NEUTROPHILS 81.3 % (40-80); PLATELET COUNT 136 10x3/uL (130-400); RDW 17.5 % (11.5-14.5)
[2017-11-24 05:50] LABS: HEMATOCRIT 27.2 % (42.0-54.0); HEMOGLOBIN 9.1 g/dL (13.5-17.5); RBC 3.23 10x6/uL (4.20-6.10)
[2017-11-24 05:55] LABS: ALBUMIN 2.1 g/dL (3.4-5.0); CALC OSMOLALITY 255 mosm/kg (275-300); CALCIUM 7.5 mg/dL (8.5-10.1); CARBON DIOXIDE 28.5 mmol/L (21.0-32.0); CHLORIDE - SERUM 95 mmol/L (98-107); CREATININE - SERUM 0.8 mg/dL (0.6-1.3); GLUCOSE 86 mg/dL (74-106); POTASSIUM - SERUM 4.1 mmol/L (3.5-5.1); SODIUM 127 mmol/L (136-145); UREA NITROGEN 17 mg/dL (7-18); eGFR NON AFRICAN AMERICAN > 90 mL/min (90-120)
[2017-11-24 06:20] LABS: ALKALINE PHOSPHATASE 79 U/L (46-116); ALT (SGPT) 30 U/L (10-68)
[2017-11-24 08:43] VITALS: BP 110/62
[2017-11-24 12:46] VITALS: BP 102/59
[2017-11-24] MEDS ORDERED: ONCOLOGY MOUTHWA5 ML PO (15:17)
[2017-11-24] MEDS ORDERED: FLORAJEN3 CAPS460 MG PO (15:17)
[2017-11-24] MEDS ORDERED: MUCINEX DM ER1 EAC1 PO (15:17)
[2017-11-24] MEDS ORDERED: COLACE100 MG PO (15:17)
[2017-11-24] MEDS ORDERED: Chloraseptic Spray [ TOPICAL (15:17)
[2017-11-24] MEDS ORDERED: IPRAT-ALBUT 0.5-3 ML INH (15:17)
[2017-11-24] MEDS ORDERED: BENZONATATE200 MG PO (15:17)
[2017-11-24] MEDS ORDERED: MEGACE40 MG PO (15:17)
[2017-11-24] MEDS ORDERED: NORVASC5 MG PO (15:17)
[2017-11-24] MEDS ORDERED: THERMOTABS 1 GM1 GM PO (15:17)
[2017-11-24 16:26] VITALS: BP 112/59
[2017-11-24 20:00] VITALS: BP 106/61
[2017-11-25 03:58] LABS: EOSINOPHILS 1.4 % (0-7); HEMATOCRIT 26.9 % (42.0-54.0); HEMOGLOBIN 8.9 g/dL (13.5-17.5); IMMATURE GRANULOCYTES 1.2 % (0-5); LYMPHOCYTES 11.1 % (15-50); MCH 28.2 pg (26.0-34.0); MCHC 33.1 g/dL (31.0-37.0); MCV 85.1 fL (80.0-100.0); MEAN PLATELET VOLUME 8.5 fL (7.4-10.4); MONOCYTES 7.1 % (2-11); NEUTROPHILS 78.2 % (40-80); PLATELET COUNT 136 10x3/uL (130-400); RBC 3.16 10x6/uL (4.20-6.10); RDW 18.1 % (11.5-14.5); WBC 5.8 10x3/uL (4.8-10.8)
[2017-11-25 04:00] VITALS: BP 144/64
[2017-11-25 04:06] LABS: ALBUMIN 2.1 g/dL (3.4-5.0); ALKALINE PHOSPHATASE 86 U/L (46-116); ALT (SGPT) 24 U/L (10-68); BILIRUBIN - TOTAL 0.63 mg/dL (0.2-1.3); CALC OSMOLALITY 257 mosm/kg (275-300); CALCIUM 8.2 mg/dL (8.5-10.1); CARBON DIOXIDE 27.4 mmol/L (21.0-32.0); CHLORIDE - SERUM 95 mmol/L (98-107); CREATININE - SERUM 0.8 mg/dL (0.6-1.3); GLUCOSE 89 mg/dL (74-106); POTASSIUM - SERUM 4.1 mmol/L (3.5-5.1); PROTEIN - SERUM 6.2 g/dL (6.4-8.2); SODIUM 128 mmol/L (136-145); UREA NITROGEN 18 mg/dL (7-18); eGFR NON AFRICAN AMERICAN > 90 mL/min (90-120)
[2017-11-25 10:51] VITALS: BP 130/59
[2017-12-01 17:25] LABS: FUNGUS MYCOLOGY CULTURE Final report (())
[2017-12-05 07:30] LABS: FUNGUS MYCOLOGY CULTURE Final report (())
[2017-12-29 09:19] LABS: ACID FAST CULTURE Negative (()); ACID FAST SMEAR Negative (())
[2018-01-04 11:22] LABS: ACID FAST CULTURE Negative (()); ACID FAST SMEAR Negative (())
== END 2017-11-25 16:16 | disposition home or self-care (01) | DRG 823 ==
LOC: D.M2 17:13 → D.MS 17:13 → D.SDCHOLD 11-10 16:22 → D.M2 11-10 16:27 → D.MS 11-14 17:48
PROVIDERS: Family Medicine; Internal Medicine Hematology & Oncology; Internal Medicine Nephrology; Internal Medicine Pulmonary Disease; Radiology Diagnostic Radiology; Specialist
PROC: 0W9930Z Drainage of Right Pleural Cavity with Drainage Device, Percutaneous Approach (ICD-10-PCS; principal; 2017-11-02 12:30)
PROC: 07BJ0ZX Excision of Left Inguinal Lymphatic, Open Approach, Diagnostic (ICD-10-PCS; 2017-11-06)
PROC: 05H633Z Insertion of Infusion Device into Left Subclavian Vein, Percutaneous Approach (ICD-10-PCS; 2017-11-13)
PROC: 07DR3ZX Extraction of Iliac Bone Marrow, Percutaneous Approach, Diagnostic (ICD-10-PCS; 2017-11-13)
PROC: 0QB23ZX Excision of Right Pelvic Bone, Percutaneous Approach, Diagnostic (ICD-10-PCS; 2017-11-13)
DX: C85.90 Non-Hodgkin lymphoma, unspecified, unspecified site (principal); I50.33 Acute on chronic diastolic (congestive) heart failure; J15.6 Pneumonia due to other Gram-negative bacteria; J86.9 Pyothorax without fistula; J96.21 Acute and chronic respiratory failure with hypoxia; J15.212 Pneumonia due to Methicillin resistant Staphylococcus aureus; E43 Unspecified severe protein-calorie malnutrition; J44.1 Chronic obstructive pulmonary disease with (acute) exacerbation; J44.0 Chronic obstructive pulmonary disease with (acute) lower respiratory infection; E87.1 Hypo-osmolality and hyponatremia; J98.11 Atelectasis; D61.818 Other pancytopenia; R16.1 Splenomegaly, not elsewhere classified; Z72.0 Tobacco use; D50.9 Iron deficiency anemia, unspecified; Z68.21 Body mass index [BMI] 21.0-21.9, adult